=== PATIENT | male | born 1995 | race Caucasian/White ===

== ENCOUNTER 2021-02-22 13:49 | Outpatient (CLI) | payer OTHER ==
[2021-02-22 14:53] VITALS: BP 141/80
--- NOTE | 2021-02-22 14:53 | SLEEP CARE CONSULTATION ---
Information from patient questionnaire entered by Kalyn Nicolas MA. I have reviewed and concur with the information entered by Kalyn Nicolas MA. This document represents the service I personally performed and the decisions made by , Pamela Rodriguez ARNP. History of Present Illness Service Date and Time: 02/22/2021 1349 Reason for Visit: New patient (ONSET 03/2018, NO PRIORS) Chief Complaint: reports: Unrefreshed sleep, Snoring, Excessive daytime sleepiness Date of Onset: 1 YEAR Usual bedtime: 9- 1100 PM Time it takes to fall asleep: FAIRLY QUICKLY Snores at night: Yes Observed to quit breathing while asleep: No Sleeps alone due to snoring: No (BUT WEARS EAR PLUGS) Number of times waking at night: ONCE Reasons for waking at night: reports: Bathroom, Other (tossing and turning) Toss, Turn, or Twitch while sleeping: Yes Recalls having dreams: Yes Usually gets out of bed at: 0500, on weekends 0900 Feels refreshed in the morning: No Morning headache: No Sleepy or fatigued during the day: Yes Ever fallen asleep while driving: No Takes day naps: No Dreams during day naps: No Prior sleep studies: No Additional HPI information: I had the pleasure of seeing PAWAN STALEY today regarding the possibility of him having a sleep disorder. His current complaints are unrefreshed sleep and snoring. He can sleep for good amounts of time but still wake up feeling tired. His has told him that he "snores like a tractor" and will wear ear plugs to be able to sleep. She has not seen him have a pause in his breathing. His grandmother snored loudly and is diagnosed with sleep apnea, uses a device to sleep. 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 Patient is and lives in [place]. Have you smoked in the past 12 months: No Cigarettes per day (20/pack): 20 Years of smokin Quit date: 2018 Smoking Pack Years: 1.0 Alcohol use: No Caffeine use: Yes Caffeine amount and frequency: 2 X DAILY Family History Family history of sleep disordered breathing: Yes Family Hx Sleep Apnea: Mother: Snoring, Grandparent: Snoring, Sleep apnea - Treated Allergies and Home Medications Known drug allergies: No Drug allergies reviewed: Yes (NKDA) Home medication list reviewed: Yes (no daily medications or supplements) Review of Systems Cardiovascular: reports: high blood pressure Gastrointestinal: denies: heartburn Neurological: denies: headaches Psychiatric: denies: anxiety, depression Ear/Nose/Throat: reports: sinus problems. denies: tonsillectomy Musculoskeletal: reports: back pain Immunologic: denies: allergies to food or environment Physical Exam Vital signs obtained and entered by: DEMETRIUS CALZADA Blood Pressure: 141/80 (left) Cuff size: wrist Heart Rate: 82 O2 Saturation: 98 (paper mask) Height: 5 ft 11 in Weight: 225 lb (no clothes) Body Mass Index: 31.4 BMI Classification: Obese Neck circumference: 16 (inches) Nostrils: patent to airflow Mouth and throat: narrow oropharynx Soft palate: long Hard palate: normal Uvula: normal Uvula visualization: 50% Mallampati Class II Tongue: enlarged in size with teeth novak on lateral edges Tonsils: 1+ Neck: normal w/o lymphadenopathy or thyromegaly Heart: regular rate and rhythm Lungs: clear bilaterally Impression and Plan 1. Suspected Obstructive Sleep Apnea-Hypopnea Syndrome, as suggested by a history of loud and irregular snoring, unrefreshed sleep, cognitive impairment, and excessive daytime sleepiness. Narrow oropharynx and obesity are common predisposing factors for obstructive sleep apnea-hypopnea syndrome. I recommend proceeding to polysomnography to confirm the diagnosis and to assess severity. If the patient has significant sleep disordered breathing, a manual CPAP titration study will also be performed to find the optimal treatment pressure. I informed the patient of what the sleep studies involve and after some discussion, obtained agreement to proceed. The pathophysiology of obstructive sleep apnea-hypopnea syndrome was discussed with the patient and health risks of cardiovascular and cerebrovascular disease if not treated. AASM brochure for obstructive sleep apnea-hypopnea syndrome given and reviewed. Risks of drowsy driving discussed in detail and patient advised to avoid long distance driving and to tap puller at the first sign of drowsiness. Patient agreed to plan. * Schedule polysomnography. * Avoid long distance driving or driving when feeling sleepy. * Avoid alcohol, sedative and muscle relaxant around bedtime. * Attempt to lose weight. * Review instructions provided by trained office staff on how to prepare for the sleep study. * Return for follow-up after sleep study completed. Counseling Topics: Weight loss health impact Visit Type: In Office Time Spent with Patient (minutes): 30 Provider Statement: I spent 100% of the Face to Face Visit with the patient with greater than 50% spent counseling the patient and coordination of care.
== END 2021-02-22 13:50 | disposition home or self-care (01) ==
LOC: SC 13:49
PROVIDERS: ATTEND Nurse Practitioner Family
DX: R06.83 Snoring (principal); R41.89 Other symptoms and signs involving cognitive functions and awareness; G47.10 Hypersomnia, unspecified; G47.8 Other sleep disorders; E66.9 Obesity, unspecified; Z68.31 Body mass index [BMI] 31.0-31.9, adult
CPT/HCPCS: 99203; 99212

== ENCOUNTER 2021-05-11 20:32 | Outpatient (CLI) | payer OTHER | END 2021-05-11 20:33 | disposition home or self-care (01) | LOC: SC 20:32 | PROVIDERS: ATTEND Nurse Practitioner Family | DX: R06.83 Snoring (principal); G47.8 Other sleep disorders; G47.10 Hypersomnia, unspecified | CPT/HCPCS: 95810 ==

== ENCOUNTER 2021-06-02 13:24 | Outpatient (CLI) | payer OTHER ==
[2021-06-02 13:58] VITALS: BP 126/73
--- NOTE | 2021-06-02 13:58 | SLEEP CARE CONSULTATION ---
Information from patient questionnaire entered by Kalyn Nicolas MA. I have reviewed and concur with the information entered by Kalyn Nicolas MA. This document represents the service I personally performed and the decisions made by Jennifer santillan Caren J, ARNP. History of Present Illness Service Date and Time: 06/02/2021 1324 Initial Tracy Sleepiness Scale score: 8 (2020) Current Tracy Sleepiness Scale score: 10 (05/24) Additional HPI information: PAWAN STALEY returns for follow up and results of the recently performed polysomnography. The patient was informed of the following findings: No significant sleep disordered breathing with an average AHI of 3.3 and funmilayo oxygen saturation of 86%. I explained the pathophysiology behind obstructive sleep apnea. Patient does not have sleep apnea and was advised how weight gain could increase the risk of developing sleep apnea in the future. I strongly encouraged the patient to lose weight. Patient has moderate snoring. Snoring can be reduced by weight loss. Weight loss is best achieved with diet consult. Patient instructed to contact PCP for referral. Snoring can also be treated with an oral appliance from a dentist. Advised to check insurance coverage. In addition, an ENT evaluation can be do to see if other treatment is indicated. Patient does not drink alcohol. Patient denies drowsy driving. Sleep Study - Results Type of Sleep Study: Polysomnography (F/U POLY, 05/11/21 [facility],) Prior sleep studies: No Allergies and Home Medications Home medication list reviewed: Yes (no changes) Review of Systems Review of systems same as previous: Yes (no changes) Physical Exam Vital signs obtained and entered by: DEMETRIUS CALZADA Blood Pressure: 126/73 (RIGHT, PULSE 75, RESP 18, ) Heart Rate: 77 O2 Saturation: 97 (PAPER) Height: 5 ft 11 in Weight: 245 lb (CLOTHES) Body Mass Index: 34.2 BMI Classification: Obese Impression and Plan Snoring but no significant sleep disordered breathing. Patient advised that often weight loss will reduce snoring as well as apnea risk. An oral appliance can also be used for snoring. This would require a dental consultation. Patient cautioned not to use other online appliances as can cause bite issues. A list of accredited dentists in [facility] and one local dentist who makes oral appliances is available in office. Patient is advised to check if insurance will cover. An ENT consult can also be helpful to determine if any other treatment is an option. * Attempt to lose weight * Return as needed for follow up. I will response compliance at that time. Counseling Topics: Weight loss health impact Plan: Lose weight Visit Type: In Office Time Spent with Patient (minutes): 10 Provider Statement: I spent 100% of the Face to Face Visit with the patient with greater than 50% spent counseling the patient and coordination of care.
== END 2021-06-02 13:25 | disposition home or self-care (01) ==
LOC: SC 13:24
PROVIDERS: ATTEND Nurse Practitioner Family
DX: R06.83 Snoring (principal); E66.9 Obesity, unspecified; Z68.34 Body mass index [BMI] 34.0-34.9, adult
CPT/HCPCS: 99212